=== PATIENT | male | born 1940 | race Caucasian/White ===

== ENCOUNTER 2020-01-03 06:55 | Inpatient (IN) ==
[2019-12-28 11:30] LABS: Basophils # 0.3 10*3/uL (0.0-0.2); Basophils % 1.7 % (0.0-0.8); Eosinophils # 0.3 10*3/uL (0.0-0.87); Eosinophils % 2.2 % (0.00-10.9); Hematocrit 49.9 VOL% (42.0-52.0); Hemoglobin 15.6 GM/DL (14.0-18.0); Immature Granulocytes % 0.5 %; Immature Granulocytes Absolute 0.08 #; Lymphocytes # 1.4 10*3/uL (1.4-4.0); Lymphocytes % 9.8 % (21.2-54.2); Mean Corpuscular HGB Conc 31.3 GM/DL (32-36); Mean Corpuscular Volume 98.2 FL (87-102); Mean Platelet Volume 11.2 FL (9.6-12.0); Monocytes % 3.4 % (1.7-12.7); Neutrophils % 82.4 % (38.7-73.9); Platelet Count 343 T/CUMM (130-400); Red Blood Count 5.08 MC/CUMM (3.8-5.5); Red Cell Distribution Width 14.5 % (9.3-17.3); White Blood Count 14.7 T/CUMM (4-12)
[2019-12-28 11:46] LABS: INR 1.1; PT Patient Result 11.2 SECS (9.8-11.9)
[2019-12-28 11:49] LABS: Albumin 3.4 G/DL (3.4-5.0); Bilirubin,Total 0.6 MG/DL (0.2-1.0); Calcium 8.6 MG/DL (8.5-10.1); Osmolality,Calculated 274.2 MOS/KG (273-304); Total Protein 7.6 G/DL (6.4-8.3)
[~2020-01-03 06:55] MED LIST: ceFAZolin 1,000 MG in SYRINGE 1 EACH IV ONE
[2020-01-03] MEDS ORDERED: ceFAZolin 1,000 MG VIAL ONE (07:57)
[2020-01-03] MEDS ORDERED: FAMOTIDINE 20 MG TABLET PO ONE (08:04)
[2020-01-03] MEDS ORDERED: DIAZEPAM 5 MG TABLET PO ONE (08:04)
[2020-01-03] MEDS ORDERED: DIAZEPAM 5 MG TABLET ONE (08:18)
[2020-01-03] MEDS ORDERED: FAMOTIDINE 20 MG TABLET ONE (08:19)
[2020-01-03] MEDS ORDERED: LACTATED RINGERS 1,000 ML IV SCH (08:30)
[2020-01-03] MEDS ORDERED: LIDOCAINE 1% 5 ML VIAL ONE ×2 (08:31→10:59)
[2020-01-03] MEDS ORDERED: DEXAMETHASONE 4 MG/1 ML VIAL ONE (08:31)
[2020-01-03] MEDS ORDERED: DEXMEDETOMIDINE 200 MCG/2 ML VIAL ONE ×2 (08:31→10:59)
[2020-01-03] MEDS ORDERED: BUPIVACAINE MPF 0.5% /EPI 30 ML VIAL ONE (08:31)
[2020-01-03] MEDS ORDERED: LIDOCAINE 1% 20 ML VIAL ONE (09:24)
[2020-01-03] MEDS ORDERED: PROMETHAZINE 25 MG/1 ML VIAL IM PRN (10:39)
[2020-01-03] MEDS ORDERED: HYDROmorphone 2 MG/1 ML VIAL IV PRN ×3 (10:39→11:15)
[2020-01-03] MEDS ORDERED: oxyCODONE/ACETAMINOPHEN 5-325 MG TABLET PO PRN ×2 (10:39)
[2020-01-03] MEDS ORDERED: NALOXONE 0.4 MG/ML VIAL IV PRN (10:39)
[2020-01-03] MEDS ORDERED: GLUCAGON 1 MG VIAL IM PRN (10:39)
[2020-01-03] MEDS ORDERED: ONDANSETRON 4 MG/2 ML VIAL IV PRN ×2 (10:39→11:15)
[2020-01-03] MEDS ORDERED: DEXTROSE 50% 25 GM/50 ML VIAL IV PRN (10:39)
[2020-01-03] MEDS ORDERED: HEPARIN 10,000 UNIT/10 ML VIAL ONE (10:59)
[2020-01-03] MEDS ORDERED: SEVOFLURANE 1 UNIT/15 MINUTE INH ONE (10:59)
[2020-01-03] MEDS ORDERED: HEPARIN/NACL 0.9% 2 UNITS/ML 500 ML IV ONE (10:59)
[2020-01-03] MEDS ORDERED: GLYCOPYRROLATE 0.4 MG/2 ML VIAL ONE (11:00)
[2020-01-03] MEDS ORDERED: ROCURONIUM 100 MG/10 ML VIAL IV ONE (11:00)
[2020-01-03] MEDS ORDERED: ETOMIDATE 40 MG/20 ML VIAL IV ONE (11:00)
[2020-01-03] MEDS ORDERED: LACTATED RINGERS 1,000 ML IV ONE (11:00)
[2020-01-03] MEDS ORDERED: PROTAMINE SULFATE 50 MG/5 ML VIAL IV ONE (11:00)
[2020-01-03] MEDS ORDERED: NEOSTIGMINE 10 MG/10 ML VIAL ONE (11:00)
[2020-01-03] MEDS ORDERED: NITROGLYCERIN DRIP 50 MG/250 ML BOTTLE IV ONE (11:01)
[2020-01-03] MEDS ORDERED: PHENYLEPHRINE DRIP 20 MG/250 ML PREMIX IV ONE (11:01)
[2020-01-03] MEDS: PHENYLEPHRINE DRIP 40 MG/250 ML PREMIX IV SCH (12:00)
[2020-01-03] MEDS: NITROPRUSSIDE 100 MG in DEXTROSE 5% 250 ML IV SCH (12:00)
[2020-01-03] MEDS: LACTATED RINGERS 1,000 ML IV SCH ×2 (12:00→22:00)
[2020-01-03 19:09] VITALS: BP 118/53
[2020-01-04] MEDS: LACTATED RINGERS 1,000 ML IV SCH (06:16)
[2020-01-04] MEDS ORDERED: GABAPENTIN 300 MG CAPSULE PO SCH (09:00)
[2020-01-04] MEDS ORDERED: ATORVASTATIN 20 MG TABLET PO SCH (09:00)
[2020-01-04] MEDS ORDERED: TAMSULOSIN 0.4 MG CAPSULE PO SCH (09:00)
[2020-01-04] MEDS ORDERED: ASPIRIN EC 81 MG TABLET PO SCH ×2 (09:00)
[2020-01-04] MEDS ORDERED: CLOPIDOGREL 75 MG TABLET PO SCH ×2 (09:00)
[2020-01-04] MEDS ORDERED: allopurinoL 100 MG TABLET PO SCH (09:00)
[2020-01-04] MEDS: NITROPRUSSIDE 100 MG in DEXTROSE 5% 250 ML IV SCH (11:23)
[2020-01-04] MEDS: PHENYLEPHRINE DRIP 40 MG/250 ML PREMIX IV SCH (11:23)
== END 2020-01-04 15:57 | disposition home or self-care (01) | DRG 39 ==
LOC: N.SDSINP 06:55 → N.ICU 11:06
PROVIDERS: ADMIT Surgery; ATTEND Surgery

== ENCOUNTER 2022-06-17 15:23 | Inpatient (IN) ==
[2022-06-17] MEDS ORDERED: ACETAMINOPHEN 325 MG TABLET PO PRN (15:39)
[2022-06-17] MEDS ORDERED: DEXTROSE 10% 250 ML BAG IV PRN (15:39)
[2022-06-17] MEDS ORDERED: ONDANSETRON 4 MG/2 ML VIAL IV PRN (15:39)
[2022-06-17] MEDS ORDERED: GLUCAGON 1 MG VIAL IM PRN (15:39)
[2022-06-17] MEDS ORDERED: LACTATED RINGERS 2,000 ML IV ONE (17:00)
[2022-06-17] MEDS: LACTATED RINGERS 1,000 ML IV SCH (20:15)
[2022-06-17] MEDS: DOCUSATE SODIUM 100 MG CAPSULE PO SCH (20:31)
[2022-06-17] MEDS: MEROPENEM 500 MG in SODIUM CHLORIDE 0.9% 100 ML IV SCH ×2 (20:33→23:48)
[2022-06-17] MEDS: INSULIN LISPRO 100 UNIT/ML SUBCUT SCH (21:03)
[2022-06-18 00:54] LABS: Basophils # 0.2 10*3/uL (0.0-0.2); Basophils % 0.9 % (0.0-0.8); Eosinophils # 0.1 10*3/uL (0.0-0.87); Eosinophils % 0.5 % (0.00-10.9); Hematocrit 41.1 VOL% (42.0-52.0); Hemoglobin 12.5 GM/DL (14.0-18.0); Immature Granulocytes % 1.2 %; Immature Granulocytes Absolute 0.33 #; Lymphocytes % 3.6 % (21.2-54.2); Mean Corpuscular HGB Conc 30.4 GM/DL (32-36); Mean Corpuscular Volume 94.7 FL (87-102); Mean Platelet Volume 10.4 FL (9.6-12.0); Monocytes % 3.6 % (1.7-12.7); Neutrophils % 90.2 % (38.7-73.9); Platelet Count 417 T/CUMM (130-400); Red Blood Count 4.34 MC/CUMM (3.8-5.5); Red Cell Distribution Width 21.3 % (9.3-17.3); White Blood Count 27.2 T/CUMM (4-12)
[2022-06-18 01:19] LABS: Calcium 7.8 MG/DL (8.5-10.1); Osmolality,Calculated 277.8 MOS/KG (273-304); Potassium 4.6 MMOL/L (3.5-5.1)
[2022-06-18 02:02] LABS: Lymphocytes 6 % (20-55); Platelet Estimate Increased; Total Cells Counted 100
[2022-06-18] MEDS: LACTATED RINGERS 1,000 ML IV SCH ×3 (05:28→16:25)
[2022-06-18] MEDS: MEROPENEM 500 MG in SODIUM CHLORIDE 0.9% 100 ML IV SCH ×4 (05:32→22:34)
[2022-06-18] MEDS: PANTOPRAZOLE 40 MG TABLET PO SCH (05:33)
[2022-06-18] MEDS ORDERED: MAGNESIUM SULF RIDER 2 GM/50 ML PREMIX IV PRN (07:18)
[2022-06-18] MEDS ORDERED: MAGNESIUM SULF RIDER 4 GM/100 ML PREMIX IV PRN (07:18)
[2022-06-18] MEDS: TAMSULOSIN 0.4 MG CAPSULE PO SCH (09:09)
[2022-06-18] MEDS: ENOXAPARIN 40 MG/0.4 ML SYRINGE SUBCUT SCH (09:09)
[2022-06-18] MEDS: ATORVASTATIN 20 MG TABLET PO SCH (09:09)
[2022-06-18] MEDS: CLOPIDOGREL 75 MG TABLET PO SCH (09:09)
[2022-06-18] MEDS: DOCUSATE SODIUM 100 MG CAPSULE PO SCH ×2 (09:09→20:57)
[2022-06-18] MEDS: GABAPENTIN 600 MG TABLET PO SCH (09:09)
[2022-06-18] MEDS: allopurinoL 100 MG TABLET PO SCH (09:09)
[2022-06-18] MEDS: INSULIN LISPRO 100 UNIT/ML SUBCUT SCH ×4 (10:30→20:56)
[2022-06-19] MEDS: LACTATED RINGERS 1,000 ML IV SCH ×3 (01:30→16:29)
[2022-06-19] MEDS: MEROPENEM 500 MG in SODIUM CHLORIDE 0.9% 100 ML IV SCH ×4 (05:50→22:02)
[2022-06-19] MEDS: PANTOPRAZOLE 40 MG TABLET PO SCH (05:50)
[2022-06-19] MEDS ORDERED: BISACODYL 5 MG TABLET PO PRN (07:26)
[2022-06-19] MEDS: INSULIN LISPRO 100 UNIT/ML SUBCUT SCH ×4 (08:07→21:48)
[2022-06-19] MEDS: DOCUSATE SODIUM 100 MG CAPSULE PO SCH ×2 (08:33→20:08)
[2022-06-19] MEDS: TAMSULOSIN 0.4 MG CAPSULE PO SCH (08:34)
[2022-06-19] MEDS: ATORVASTATIN 20 MG TABLET PO SCH (08:34)
[2022-06-19] MEDS: GABAPENTIN 600 MG TABLET PO SCH (08:34)
[2022-06-19] MEDS: allopurinoL 100 MG TABLET PO SCH (08:34)
[2022-06-19] MEDS: CLOPIDOGREL 75 MG TABLET PO SCH (08:34)
[2022-06-19] MEDS: ENOXAPARIN 40 MG/0.4 ML SYRINGE SUBCUT SCH (08:34)
[2022-06-19] MEDS: BENZONATATE 100 MG CAPSULE PO PRN (12:00)
[2022-06-19] MEDS: traMADol 50 MG TABLET PO PRN (20:08)
[2022-06-20] MEDS: traMADol 50 MG TABLET PO PRN (03:26)
[2022-06-20 05:09] LABS: Basophils # 0.3 10*3/uL (0.0-0.2); Basophils % 1.6 % (0.0-0.8); Eosinophils # 0.7 10*3/uL (0.0-0.87); Eosinophils % 3.4 % (0.00-10.9); Hematocrit 39.9 VOL% (42.0-52.0); Immature Granulocytes % 1.2 %; Immature Granulocytes Absolute 0.23 #; Lymphocytes # 1.3 10*3/uL (1.4-4.0); Lymphocytes % 6.8 % (21.2-54.2); Mean Corpuscular HGB Conc 30.1 GM/DL (32-36); Mean Corpuscular Volume 95.9 FL (87-102); Mean Platelet Volume 10.8 FL (9.6-12.0); Monocytes # 0.4 10*3/uL (0.11-0.8); Monocytes % 2.3 % (1.7-12.7); Neutrophils % 84.7 % (38.7-73.9); Platelet Count 354 T/CUMM (130-400); Red Blood Count 4.16 MC/CUMM (3.8-5.5); Red Cell Distribution Width 21.2 % (9.3-17.3); White Blood Count 19.5 T/CUMM (4-12)
[2022-06-20 05:31] LABS: Calcium 6.6 MG/DL (8.5-10.1); Potassium 4.7 MMOL/L (3.5-5.1)
[2022-06-20] MEDS: MEROPENEM 500 MG in SODIUM CHLORIDE 0.9% 100 ML IV SCH (05:52)
[2022-06-20] MEDS: ERTAPENEM 1,000 MG in SODIUM CHLORIDE 0.9% 100 ML IV SCH (06:16)
[2022-06-20] MEDS: PANTOPRAZOLE 40 MG TABLET PO SCH (06:16)
[2022-06-20] MEDS: INSULIN LISPRO 100 UNIT/ML SUBCUT SCH ×3 (08:25→16:52)
[2022-06-20] MEDS: LACTATED RINGERS 1,000 ML IV SCH ×2 (09:00→11:35)
[2022-06-20] MEDS: DOCUSATE SODIUM 100 MG CAPSULE PO SCH ×2 (11:35→20:35)
[2022-06-20] MEDS: TAMSULOSIN 0.4 MG CAPSULE PO SCH (11:35)
[2022-06-20] MEDS: GABAPENTIN 600 MG TABLET PO SCH (11:36)
[2022-06-20] MEDS: ATORVASTATIN 20 MG TABLET PO SCH (11:36)
[2022-06-20] MEDS: ENOXAPARIN 40 MG/0.4 ML SYRINGE SUBCUT SCH (11:36)
[2022-06-20] MEDS: allopurinoL 100 MG TABLET PO SCH (11:47)
[2022-06-20] MEDS: CLOPIDOGREL 75 MG TABLET PO SCH (11:47)
[2022-06-20] MEDS: BENZONATATE 100 MG CAPSULE PO PRN (20:35)
[2022-06-21] MEDS: INSULIN LISPRO 100 UNIT/ML SUBCUT SCH ×5 (00:06→22:32)
[2022-06-21] MEDS: LACTATED RINGERS 1,000 ML IV SCH ×2 (03:15→22:35)
[2022-06-21] MEDS: PANTOPRAZOLE 40 MG TABLET PO SCH (06:14)
[2022-06-21] MEDS: ERTAPENEM 1,000 MG in SODIUM CHLORIDE 0.9% 100 ML IV SCH (06:14)
[2022-06-21] MEDS: GABAPENTIN 600 MG TABLET PO SCH (08:19)
[2022-06-21] MEDS: TAMSULOSIN 0.4 MG CAPSULE PO SCH (08:19)
[2022-06-21] MEDS: ATORVASTATIN 20 MG TABLET PO SCH (08:19)
[2022-06-21] MEDS: DOCUSATE SODIUM 100 MG CAPSULE PO SCH ×2 (08:19→21:00)
[2022-06-21] MEDS: CLOPIDOGREL 75 MG TABLET PO SCH (08:19)
[2022-06-21] MEDS: allopurinoL 100 MG TABLET PO SCH (08:19)
[2022-06-21] MEDS: ENOXAPARIN 40 MG/0.4 ML SYRINGE SUBCUT SCH (08:20)
[2022-06-21] MEDS: DEXTROMETHORPHAN ER 6 MG/ML 90 ML/BOTTLE PO SCH ×2 (13:02→21:00)
[2022-06-21] MEDS: traMADol 50 MG TABLET PO PRN (21:05)
[2022-06-22 05:27] LABS: Calcium 7.9 MG/DL (8.5-10.1); Potassium 4.7 MMOL/L (3.5-5.1)
[2022-06-22 05:35] LABS: Basophils # 0.4 10*3/uL (0.0-0.2); Basophils % 1.8 % (0.0-0.8); Eosinophils # 0.6 10*3/uL (0.0-0.87); Eosinophils % 2.9 % (0.00-10.9); Hematocrit 42.3 VOL% (42.0-52.0); Hemoglobin 12.8 GM/DL (14.0-18.0); Immature Granulocytes % 1.6 %; Immature Granulocytes Absolute 0.32 #; Lymphocytes # 1.4 10*3/uL (1.4-4.0); Lymphocytes % 7.2 % (21.2-54.2); Mean Corpuscular HGB Conc 30.3 GM/DL (32-36); Mean Corpuscular Volume 94.6 FL (87-102); Mean Platelet Volume 10.7 FL (9.6-12.0); Monocytes # 0.5 10*3/uL (0.11-0.8); Monocytes % 2.5 % (1.7-12.7); Platelet Count 372 T/CUMM (130-400); Red Blood Count 4.47 MC/CUMM (3.8-5.5); Red Cell Distribution Width 20.7 % (9.3-17.3); White Blood Count 19.7 T/CUMM (4-12)
[2022-06-22] MEDS: PANTOPRAZOLE 40 MG TABLET PO SCH (05:46)
[2022-06-22] MEDS: traMADol 50 MG TABLET PO PRN ×3 (05:47→20:00)
[2022-06-22] MEDS: ERTAPENEM 1,000 MG in SODIUM CHLORIDE 0.9% 100 ML IV SCH (05:48)
[2022-06-22] MEDS: INSULIN LISPRO 100 UNIT/ML SUBCUT SCH ×4 (07:30→20:02)
[2022-06-22] MEDS ORDERED: FUROSEMIDE 20 MG/2 ML VIAL IV ONE (09:52)
[2022-06-22] MEDS: TAMSULOSIN 0.4 MG CAPSULE PO SCH (09:58)
[2022-06-22] MEDS: ATORVASTATIN 20 MG TABLET PO SCH (09:58)
[2022-06-22] MEDS: GABAPENTIN 600 MG TABLET PO SCH (09:58)
[2022-06-22] MEDS: allopurinoL 100 MG TABLET PO SCH (09:58)
[2022-06-22] MEDS: DOCUSATE SODIUM 100 MG CAPSULE PO SCH ×2 (09:58→20:00)
[2022-06-22] MEDS: ENOXAPARIN 40 MG/0.4 ML SYRINGE SUBCUT SCH (09:59)
[2022-06-22] MEDS: CLOPIDOGREL 75 MG TABLET PO SCH (09:59)
[2022-06-22] MEDS: DEXTROMETHORPHAN ER 6 MG/ML 90 ML/BOTTLE PO SCH ×2 (10:01→20:00)
[2022-06-22 19:17] LABS: Bilirubin,Urine Negative (Negative); Blood, Urine Negative (Negative); Glucose,Urine (UA) Negative (Negative); Ketones,Urine Negative (Negative); Mucus,Urine Occasional /LPF (Occasional); Nitrite,Urine Negative (Negative); Protein,Urine Negative (Negative); RBC,Urine 2 /HPF (0-4); Squamous Epithelial Cell,Urine Occasional /HPF (0-10); Urine Appearance Clear (Clear); Urine Color Yellow (Yellow); Urine Specific Gravity 1.015 (1.001-1.035); Urine Urobilinogen 0.2 eU/dL (<2.0)
[2022-06-23] MEDS: PANTOPRAZOLE 40 MG TABLET PO SCH (06:07)
[2022-06-23] MEDS: ERTAPENEM 1,000 MG in SODIUM CHLORIDE 0.9% 100 ML IV SCH (06:07)
[2022-06-23] MEDS: INSULIN LISPRO 100 UNIT/ML SUBCUT SCH ×2 (08:48→12:27)
[2022-06-23] MEDS: CLOPIDOGREL 75 MG TABLET PO SCH (09:10)
[2022-06-23] MEDS: TAMSULOSIN 0.4 MG CAPSULE PO SCH (09:10)
[2022-06-23] MEDS: DOCUSATE SODIUM 100 MG CAPSULE PO SCH (09:10)
[2022-06-23] MEDS: ATORVASTATIN 20 MG TABLET PO SCH (09:10)
[2022-06-23] MEDS: GABAPENTIN 600 MG TABLET PO SCH (09:10)
[2022-06-23] MEDS: DEXTROMETHORPHAN ER 6 MG/ML 90 ML/BOTTLE PO SCH (09:11)
[2022-06-23] MEDS: allopurinoL 100 MG TABLET PO SCH (09:11)
[2022-06-23] MEDS: traMADol 50 MG TABLET PO PRN (09:11)
[2022-06-23] MEDS: ENOXAPARIN 40 MG/0.4 ML SYRINGE SUBCUT SCH (09:12)
[2022-06-23 12:17] VITALS: BP 154/62
== END 2022-06-23 17:00 | disposition home health service (06) | DRG 690 ==
LOC: N.5E 15:52
PROVIDERS: ADMIT Family Medicine; ATTEND Family Medicine